=== PATIENT | male | born 1985 | race American Indian/Alaskan Native ===

== ENCOUNTER 2016-11-06 01:40 | Emergency (ER) | payer SELFPAY ==
[2016-11-06] MEDS ORDERED: cefTRIAXone (Rocephin) 250 mg Inj IM STA (02:01)
--- NOTE | 2016-11-06 02:05 | ED PDOC ---
Arrival/HPI - General Chief Complaint: Male Genitourinary Time Seen by Provider: 11/06/16 02:01 Historian: Patient - History of Present Illness Narrative History of Present Illness (Text): 11/06/16 02:02 This 31 yo male presents to this ED c/o dysuria, and penile discharge for 3 days. Patient stated he has similar symptoms "years ago", and he was Dx. STD. Patient is requesting STD treatment. Denies inguinal pain, or testicular pain. Denies fever, sob, pelvic pain or abdominal pain. Patient is sexually active with 3 women. Patient does not use protection Time/Duration: Other (3 days) Quality: Burning Context: Home Past Medical History - Provider Review Nursing Documentation Reviewed: Yes Family/Social History - Physician Review Nursing Documentation Reviewed: Yes Family/Social History: No Known Family HX Allergies/Home Meds Allergies/Adverse Reactions: Allergies No Known Allergies Allergy (Verified 11/06/16 02:01) Review of Systems - Review of Systems Constitutional: Normal. absent: Fatigue, Weight Change, Fevers Eyes: Normal ENT: Normal Respiratory: Normal Cardiovascular: Normal Gastrointestinal: Normal Genitourinary Male: Dysuria. absent: Frequency, Hematuria Musculoskeletal: Normal Skin: Normal Neurological: Normal Endocrine: Normal Hemo/Lymphatic: Normal Psychiatric: Normal Physical Exam Vital Signs Temp Pulse Resp Pulse Ox 11/06/16 02:06 97.8 F 86 18 99 Temperature: Afebrile Blood Pressure: Normal Pulse: Regular Respiratory Rate: Normal Appearance: Positive for: Well-Appearing, Non-Toxic, Comfortable Pain Distress: None Mental Status: Positive for: Alert and Oriented X 3 - Systems Exam Head: Present: Atraumatic, Normocephalic Pupils: Present: PERRL Extroacular Muscles: Present: EOMI Conjunctiva: Present: Normal Mouth: Present: Moist Mucous Membranes Neck: Present: Normal Range of Motion Respiratory/Chest: Present: Clear to Auscultation, Good Air Exchange. No: Respiratory Distress, Accessory Muscle Use Cardiovascular: Present: Regular Rate and Rhythm, Normal S1, S2. No: Murmurs Abdomen: Present: Normal Bowel Sounds. No: Tenderness, Distention, Peritoneal Signs Genitourinary Male: Present: Normal External Genitalia, Circumcised Penis, Penile Discharge (clear/whitish discharge). No: Lesions, Testicle Tenderness, Penile Swelling, Masses, Erythema, Hernias, Testicle Swelling Back: Present: Normal Inspection Upper Extremity: Present: Normal Inspection, Normal ROM, NORMAL PULSES, Neurovascularly Intact, Capillary Refill < 2s. No: Cyanosis, Edema Lower Extremity: Present: Normal Inspection, NORMAL PULSES, Normal ROM, Neurovascularly Intact, Capillary Refill < 2 s. No: Edema Neurological: Present: GCS=15, CN II-XII Intact, Speech Normal Skin: Present: Warm, Dry, Normal Color. No: Rashes Psychiatric: Present: Alert, Oriented x 3, Normal Insight, Normal Concentration Medical Decision Making ED Course and Treatment: 11/06/16 02:05 Re-evaluation. Patient feels better. Discussed results and plan with patient who expresses understanding. All questions answered and there is agreement with the plan to discharge home with instructions. Patient stable for discharge. Return if symptoms persist or worsen. Patient was treated with Rocephin IM, and Azithromycin PO. Patient was recommended to always use protection, and to inform partners regarding his symptoms, and F/U GC/ chlamydia test in 3 days with his doctor. Re-evaluation Time: 02:05 Reassessment Condition: Re-examined, Improved - Medication Orders Current Medication Orders: Discontinued Medications Azithromycin (Zithromax) 1,000 mg PO STAT STA PRN Reason: Protocol Stop: 11/06/16 02:03 Ceftriaxone Sodium (Rocephin) 250 mg IM STAT STA PRN Reason: Protocol Stop: 11/06/16 02:02 Disposition/Present on Arrival - Present on Arrival Any Indicators Present on Arrival: No History of DVT/PE: No History of Uncontrolled Diabetes: No Urinary Catheter: No History of Decub. Ulcer: No - Disposition Have Diagnosis and Disposition been Completed?: Yes Diagnosis: Urethritis Disposition: HOME/ ROUTINE Disposition Time: 02:07 Patient Plan: Discharge Condition: GOOD Discharge Instructions (ExitCare): Nonspecific Urethritis in Men (ED) Additional Instructions: Call private doctor or clinic for follow up visit and review of STD test in 2-3 days. Tell partners regarding your symptoms so they can get checked. Always use protection. If test is positive , have clinic check for HIV, and other infection. Return to emergency if symptoms worsen. Referrals: [facility] [Outside] - Follow up with primary [facility] [Outside] - Follow up with primary
[2016-11-06 02:09] VITALS: PULSE 86; RESP 18; TEMP 97.8; O2SAT 99
[2016-11-06 02:15] VITALS: BP 131/78
== END 2016-11-06 03:05 | disposition home or self-care (01) ==
LOC: ED 01:40
DX: N34.2 Other urethritis (principal)
CPT/HCPCS: 87491; 87591; 96372; 99283; J0696

== ENCOUNTER 2016-11-19 18:32 | Emergency (ER) | payer SELFPAY ==
[2016-11-19 18:48] VITALS: BMI 25.8
[2016-11-19 19:03] VITALS: RESP 18; TEMP 98.2; O2SAT 98
--- NOTE | 2016-11-19 19:10 | ED PDOC ---
Arrival/HPI - General Historian: Patient - History of Present Illness Time/Duration: 1 week Symptom Onset: Sudden Symptom Course: Intermittent Context: Home <Aliza Zayas - Last Filed: 11/19/16 21:30> <Otis López - Last Filed: 11/19/16 21:35> - General Chief Complaint: Chest Pain Time Seen by Provider: 11/19/16 18:51 - History of Present Illness Narrative History of Present Illness (Text): 11/19/16 19:22 31 yo male with no significant PMH presents to ED with chest pain. Patient states that the pain started 1 week ago. He describes the pain as sharp lasting a few seconds and occurs multiple times daily. It is located on the left side of his chest, denies radiation. Pain occurs with movement and at rest. He also reports SOB with excretion for past week. He denies any trauma, or strain. Denies fever, chills, abd pain, n/v. PMD: (Aliza Zayas) Past Medical History - Provider Review Nursing Documentation Reviewed: Yes - Cardiac Hx Cardiac Disorders: No - Pulmonary Hx Respiratory Disorders: No - Neurological Hx Neurological Disorder: No - HEENT Hx HEENT Disorder: No - Renal Hx Renal Disorder: No - Endocrine/Metabolic Hx Endocrine Disorders: No - Hematological/Oncological Hx Blood Disorders: No - Integumentary Hx Dermatological Disorder: No - Musculoskeletal/Rheumatological Hx Musculoskeletal Disorders: No - Gastrointestinal Hx Gastrointestinal Disorders: No - Genitourinary/Gynecological Hx Genitourinary Disorders: No - Psychiatric Hx Substance Use: No - Surgical History 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) <Aliza Zayas - Last Filed: 11/19/16 21:30> Family/Social History - Physician Review Nursing Documentation Reviewed: Yes Family/Social History: Neoplasm/Cancer (mother) Smoking Status: Heavy Smoker > 10 Cigarettes Daily Hx Alcohol Use: No Hx Substance Use: No <Aliza Zayas - Last Filed: 11/19/16 21:30> Allergies/Home Meds <Aliza Zayas - Last Filed: 11/19/16 21:30> <Otis López - Last Filed: 11/19/16 21:35> Allergies/Adverse Reactions: Allergies No Known Allergies Allergy (Verified 11/06/16 02:01) Home Medications: Home Meds Medication Instructions Recorded Confirmed No Known Home Med 11/19/16 11/19/16 Review of Systems - Review of Systems Constitutional: Normal. absent: Fatigue Eyes: Normal. absent: Vision Changes ENT: Normal. absent: Sore Throat, Rhinorrhea, Sinus Congestion Respiratory: SOB. absent: Cough, Wheezing Cardiovascular: Chest Pain. absent: Palpitations, Edema, Syncope Gastrointestinal: Normal. absent: Abdominal Pain, Constipation, Diarrhea, Nausea, Vomiting Genitourinary Male: Normal. absent: Dysuria, Frequency Musculoskeletal: Normal. absent: Arthralgias, Back Pain, Myalgias Skin: Normal. absent: Rash, Pruritis Neurological: Normal. absent: Headache, Dizziness Endocrine: Normal. absent: Diaphoresis Hemo/Lymphatic: Normal. absent: Easy Bleeding, Easy Bruising Psychiatric: Normal <ChanaCesario cordobaa - Last Filed: 11/19/16 21:30> Physical Exam Vital Signs Reviewed: Yes Temperature: Afebrile Blood Pressure: Normal Pulse: Regular Respiratory Rate: Normal Appearance: Positive for: Well-Appearing, Non-Toxic, Comfortable Pain Distress: None Mental Status: Positive for: Alert and Oriented X 3 - Systems Exam Head: Present: Atraumatic, Normocephalic Pupils: Present: PERRL. No: Non-Reactive, Pinpoint Extroacular Muscles: Present: EOMI Conjunctiva: Present: Normal Mouth: Present: Moist Mucous Membranes Neck: Present: Normal Range of Motion Respiratory/Chest: Present: Clear to Auscultation, Good Air Exchange. No: Respiratory Distress, Accessory Muscle Use, Wheezes, Rales, Rhonchi, Tachypneic , Tender to Palpation Cardiovascular: Present: Regular Rate and Rhythm, Normal S1, S2. No: Murmurs, Tachycardic, Bradycardic Abdomen: Present: Normal Bowel Sounds. No: Tenderness, Distention, Peritoneal Signs Back: Present: Normal Inspection Upper Extremity: Present: Normal Inspection. No: Cyanosis, Edema, Tenderness, Swelling Lower Extremity: Present: Normal Inspection. No: Edema, CALF TENDERNESS, NORMAL PULSES, Normal ROM Neurological: Present: GCS=15, CN II-XII Intact, Speech Normal Skin: Present: Warm, Dry, Normal Color. No: Rashes Psychiatric: Present: Alert, Oriented x 3, Normal Insight, Normal Concentration <Chana,Aliza - Last Filed: 11/19/16 21:30> Medical Decision Making <Aliza Zayas - Last Filed: 11/19/16 21:30> - EKG Interpretation Interpreted by ED Physician: Yes (EKG shows NSR at 81 BPM, otherwise normal) Type: 12 lead EKG <Otis López - Last Filed: 11/19/16 21:35> ED Course and Treatment: 11/19/16 19:36 Impression: 31 yo male with no significant PMH presents to ED with chest pain. Differential diagnoses include but are not limited to: - musculoskeletal pain Plan: - EKG - CXR progress notes: 11/19/16 19:37 EKG: Rate: 81 bpm rhythm: NSR, no ST changes - CXR showed no acute activity - Results discussed with patient. He is to follow up with PMD in 1-2 days. He is to return to ED if symptoms worsen. All questions answered, he is in agreement with plan. (Aliza Zayas) Patient Seen With Resident: In agreement with resident note which contains more details about the patient. Patient was seen and evaluated with resident. Came up with plan and treatment together. 31 year old male presents to the emergency department with chest pain for the past week. EKG and Chest X-ray show no acute findings. PERC negative. Patient agreeable with discharge. (Otis López) - RAD Interpretation Radiology Orders: 11/19/16 19:09 X-RAY [CHEST PORTABLE] [RAD] Stat Wells Criteria for PE - Wells Criteria for Pulmonary Embolism Clinical Signs and Symptoms of DVT: No P.E is #1 Diagnosis, or Equally Likely: No Heart Rate >100: No Immobilization at least 3 days;Surgery previous 4 weeks: No Previous, objectively diagnosed PE or DVT: No Hemoptysis: No Malignancy w/treatment within 6 months, or palliative: No Total Score: 0 <Otis López - Last Filed: 11/19/16 21:35> Disposition/Present on Arrival - Present on Arrival Any Indicators Present on Arrival: No History of DVT/PE: No History of Uncontrolled Diabetes: No Urinary Catheter: No History of Decub. Ulcer: No History Surgical Site Infection Following: None - Disposition Have Diagnosis and Disposition been Completed?: Yes Disposition Time: 19:48 Patient Plan: Discharge <Aliza Zayas - Last Filed: 11/19/16 21:30> <Otis López - Last Filed: 11/19/16 21:35> - Disposition Diagnosis: Musculoskeletal chest pain Disposition: HOME/ ROUTINE Condition: GOOD Discharge Instructions (ExitCare): Chest Pain (ED) Additional Instructions: Freeman Ornelas, thank you for letting us take care of you today. Your provider was Dr. Zayas and Dr. López. You were treated for musculoskeletal chest pain. The emergency medical care you received today was directed at your acute symptoms. If you were prescribed any medication, please fill it and take as directed. It may take several days for your symptoms to resolve. Return to the Emergency Department if your symptoms worsen, do not improve, or if you have any other problems. Please contact your doctor or call one of the physicians/clinics you have been referred to that are listed on the Patient Visit Information form that is included in your discharge packet. Bring any paperwork you were given at discharge with you along with any medications you are taking to your follow up visit. Our treatment cannot replace ongoing medical care by a primary care provider (PCP) outside of the emergency department. Thank you for allowing the [facility] team to be part of your care today. If you had an X-Ray or CT scan: A Radiologist will review the ED reading if any change in treatment is needed we will contact you. Referrals: [facility] [place] - Follow up with primary Jeanne Nguyen, [Primary Care Provider] - Follow up with primary Gary Courtney DO [Staff Provider] - Follow up with primary
[2016-11-19 20:08] VITALS: BP 118/72; PULSE 76
--- NOTE | 2016-11-20 09:55 | RAD ---
HISTORY: chest pain COMPARISON: No prior. FINDINGS: LUNGS: No active pulmonary disease. PLEURA: No significant pleural effusion identified, no pneumothorax apparent. CARDIOVASCULAR: Normal. OSSEOUS STRUCTURES: No significant abnormalities. VISUALIZED UPPER ABDOMEN: Normal. OTHER FINDINGS: None. IMPRESSION: No active disease.
--- NOTE | 2016-11-20 11:16 | CARD ---
APPROVED REPORT EKG Measurement Heart [id number] <Conclusion> Normal sinus rhythm Normal ECG
== END 2016-11-19 20:08 | disposition home or self-care (01) ==
LOC: ED 18:32
DX: R07.89 Other chest pain (principal)